=== PATIENT | female | born 1995 | race Caucasian/White ===

== ENCOUNTER 2018-09-14 08:52 | Emergency (ER) | payer OTHER ==
[~2018-09-14] VITALS: Ht 175.3 cm; Wt 86.2 kg
[2018-09-14 09:50] LABS: ABSOLUTE NEUTROPHILS 3.2 thou/uL (1.4-8.2); BASOPHILS 0.5 % (0.0-2.0); HEMATOCRIT 43.3 % (37.0-47.0); LYMPHOCYTES 39.6 % (24.0-44.0); MCH 31.1 pg (26.0-34.0); MCHC 34.5 g/dL (28.0-37.0); MONOCYTES 5.4 % (1.0-8.0); PLATELET COUNT 259 thou/uL (150-400); POLYS 52.5 % (36.0-66.0); RBC 4.81 mil/uL (4.20-5.00); RDW 12.8 % (10.5-14.5); WBC 6.1 thou/uL (4.0-11.0)
[2018-09-14 10:01] LABS: ANION GAP 3 mmol/L (7-16); BUN 11 mg/dL (7-18); CALCIUM 9.1 mg/dL (8.5-10.1); CHLORIDE 105 mmol/L (98-107); CO2 26 mmol/L (21-32); CREATININE 0.8 mg/dL (0.6-1.0); GLUCOSE 89 mg/dL (74-106); POTASSIUM 3.6 mmol/L (3.5-5.1); SODIUM 134 mmol/L (136-145)
[2018-09-14 10:07] LABS: ALBUMIN 3.6 g/dL (3.4-5.0); DIRECT BILIRUBIN < 0.1 mg/dL (<0.1-0.3); LIPASE 108 U/L (73-393); SGOT 11 U/L (15-37); SGPT 16 U/L (30-65); TOTAL BILIRUBIN 0.3 mg/dL (<0.1-1.0); TOTAL PROTEIN 7.3 g/dL (6.4-8.2)
[2018-09-14 10:34] LABS: URINE BILIRUBIN NEGATIVE (Negative); URINE BLOOD TRACE (Negative); URINE CLARITY CLEAR; URINE COLOR YELLOW; URINE GLUCOSE-RANDOM* NEGATIVE (Negative); URINE KETONES NEGATIVE (Negative); URINE LEUKOCYTES-REFLEX NEGATIVE (Negative); URINE NITRITE-REFLEX NEGATIVE (Negative); URINE PROTEIN (DIPSTICK) NEGATIVE (Negative); URINE UROBILINOGEN 0.2 E.U./dl (0.2-1.0)
[2018-09-14] MEDS ORDERED: ULTRAM 50MG TAB50 MG PO (11:48)
[2018-09-14] MEDS ORDERED: IBUPROFEN 600600 M1 PO (11:48)
[2018-09-14] MEDS ORDERED: ZOFRAN ODT4 MG PO (11:48)
[2018-09-14] MEDS ORDERED: NORFLEX100 MG PO (11:48)
[2018-09-14 12:01] VITALS: BP 119/78
== END 2018-09-14 12:10 ==
LOC: ER 08:52
PROVIDERS: Emergency Medicine
DX: S16.1XXA Strain of muscle, fascia and tendon at neck level, initial encounter (principal); S29.012A Strain of muscle and tendon of back wall of thorax, initial encounter; V49.9XXA Car occupant (driver) (passenger) injured in unspecified traffic accident, initial encounter; Y93.89 Activity, other specified; Y92.89 Other specified places as the place of occurrence of the external cause; Y99.8 Other external cause status; R11.10 Vomiting, unspecified

== ENCOUNTER 2021-09-26 04:31 | Emergency (ER) | payer OTHER ==
[~2021-09-26] VITALS: Ht 175.3 cm; Wt 86.2 kg
[~2021-09-26 04:31] MED LIST: IBUPROFEN 600600 M1 PO; NORFLEX100 MG PO; ULTRAM 50MG TAB50 MG PO; ZOFRAN ODT4 MG PO
[2021-09-26 04:32] VITALS: BP 135/79
[2021-09-26] MEDS ORDERED: NORCO7.5 PO (04:39)
[2021-09-26] MEDS ORDERED: AMOXICILLIN875 MG PO (04:55)
== END 2021-09-26 05:10 | disposition home or self-care (01) ==
LOC: ER 04:31
DX: H66.92 Otitis media, unspecified, left ear (principal); Z87.442 Personal history of urinary calculi; Z98.890 Other specified postprocedural states; Z79.899 Other long term (current) drug therapy